=== PATIENT | female | born 1955 | race Caucasian/White ===

== ENCOUNTER → 2019-02-10 | Day surgery (SDC) | payer MEDICARE, BC ==
[~2019-02-10] MED LIST: Lactated Ringers 1,000 ML IV SCH; Propofol 200 MG/20 ML SDV IV ONE
[2019-02-10 13:10] VITALS: BP 136/65
--- NOTE | 2019-02-10 14:06 | OR ---
DATE OF OPERATION: 02/10/2019 PREOPERATIVE DIAGNOSIS: SCREENING COLONOSCOPY. POSTOPERATIVE DIAGNOSIS: SCREENING COLONOSCOPY. SURGEON: Isaac Bermudez MD PROCEDURE: FULL-LENGTH COLONOSCOPY WITH FORCEPS POLYP REMOVAL X1 ANESTHESIA: MAC via LABORER HIGH DENSITY PRESS. COMPLICATIONS: None. SPECIMEN: Sessile polyp, 4 mm, proximal sigmoid colon. FINDINGS: 1. Full-length colonoscopy. 2. Marginal prep, right colon. 3. Sessile polyp, 4-5 mm, proximal sigmoid colon. RECOMMENDATIONS: Followup colonoscopy in 5 years. INDICATIONS: The patient was in for a recent physical. It has been 14 years since her last colonoscopy. She was sent for a screening procedure. DESCRIPTION OF PROCEDURE: The patient was prepped and draped, placed in the left lateral decubitus position. A lubricated Olympus colonoscope was inserted and easily advanced into the right colon. It was very difficult to see in the right colon as the patient had a lot of stool, some of it thick and some not, could not suction all, just tried to irrigate, but could not definitely see into the cecal pouch, got right up to it in the proximal ascending colon, but from there it was difficult to visualize. Upon withdrawal, the right colon was difficult to see. There were some scattered areas in the transverse and one on the sigmoid also difficult to see. The rectal vault had a lot of stool, we were able to irrigate that. For the most part, she had an unremarkable exam. There was 1 small sessile polyp approximately 4 mm in the proximal sigmoid colon, removed with 2 cold forceps biopsies in its entirety. The rest of the colon showed no obvious polyps, mass, ulceration, or bleeding sites. No vascular abnormalities or signs of colitis. There were no significant diverticula. The rectal vault appeared benign. Retroflexion showed no anal lesions. As stated earlier, smaller lesions certainly could have been missed due to the volume of stool present, especially in the right colon. Air was suctioned and scope was removed without complication. JAKE/JOVANI /[id number]
== END ==
LOC: CC.SDS 08:26
PROVIDERS: ATTEND Family Medicine
DX: Z12.11 Encounter for screening for malignant neoplasm of colon (principal); D12.5 Benign neoplasm of sigmoid colon; I10 Essential (primary) hypertension; F32.9 Major depressive disorder, single episode, unspecified; E78.5 Hyperlipidemia, unspecified; E03.9 Hypothyroidism, unspecified; E55.9 Vitamin D deficiency, unspecified; F41.9 Anxiety disorder, unspecified; K58.9 Irritable bowel syndrome, unspecified; G43.909 Migraine, unspecified, not intractable, without status migrainosus; G62.9 Polyneuropathy, unspecified; G25.81 Restless legs syndrome; G47.30 Sleep apnea, unspecified; M17.0 Bilateral primary osteoarthritis of knee; M81.0 Age-related osteoporosis without current pathological fracture; M79.7 Fibromyalgia; Z88.0 Allergy status to penicillin; Z88.1 Allergy status to other antibiotic agents; Z88.5 Allergy status to narcotic agent; Z88.8 Allergy status to other drugs, medicaments and biological substances; Z87.891 Personal history of nicotine dependence; Z79.1 Long term (current) use of non-steroidal anti-inflammatories (NSAID); Z79.899 Other long term (current) drug therapy
CPT/HCPCS: 45380; J2704; J7120

== ENCOUNTER 2025-01-15 16:50 | Emergency (ER) | payer MEDICARE, BC, OTHER ==
[2025-01-15] MEDS: Take Home: Acetaminophen/HYDROcodone 325-5 MG, 2 Tab Pack PO ONE (17:50)
[2025-01-15 18:59] VITALS: BP 118/72; PULSE 78
== END 2025-01-15 18:55 | disposition home or self-care (01) ==
LOC: CC.ED 16:50
DX: S52.611A Displaced fracture of right ulna styloid process, initial encounter for closed fracture (principal); S52.531A Colles' fracture of right radius, initial encounter for closed fracture; I10 Essential (primary) hypertension; E03.9 Hypothyroidism, unspecified; Z88.0 Allergy status to penicillin; Z88.1 Allergy status to other antibiotic agents; Z88.8 Allergy status to other drugs, medicaments and biological substances; Z79.890 Hormone replacement therapy; Z79.899 Other long term (current) drug therapy; Z90.49 Acquired absence of other specified parts of digestive tract; W19.XXXA Unspecified fall, initial encounter
CPT/HCPCS: 29125; 73090-RT; 99284-25; A9270-GY